=== PATIENT | female | born 1980 | race Asian ===

== ENCOUNTER 2022-07-10 20:30 | Inpatient (IN) | payer OTHER ==
[2022-07-10 21:33] LABS: BASO % 0.7 % (0-2.0); EOS % 0.3 % (0-4.5); HEMATOCRIT 39.1 % (32.4-45.2); MCH 28.7 pg (25.7-33.7); MCHC 33.2 g/dl (32.0-36.0); MEAN CELL VOLUME 86.5 fl (80-96); MEAN PLT VOLUME 7.5 fl (7.5-11.1); MONO % 7.1 % (3.8-10.2); NEUT % 82.9 % (42.8-82.8); PLATELET COUNT 287 10^3/uL (134-434); RBC 4.52 M/mm3 (3.60-5.2); RDW 14.1 % (11.6-15.6); WHITE BLOOD COUNT 10.8 K/mm3 (4.0-10.0)
[2022-07-10 21:50] LABS: ALBUMIN 3.7 g/dl (3.4-5.0); BLOOD UREA NITROGEN 8.7 mg/dL (7-18); CALCIUM 8.6 mg/dL (8.5-10.1); MAGNESIUM 2.2 mg/dL (1.8-2.4)
[2022-07-10 21:53] LABS: CREATININE 0.6 mg/dL (0.55-1.3); PHOSPHOROUS 1.8 mg/dL (2.5-4.9)
[2022-07-10 21:54] LABS: BILIRUBIN,TOTAL 0.3 mg/dL (0.2-1); TOT PROT 7.5 g/dl (6.4-8.2)
[2022-07-10] MEDS ORDERED: DIPHTH,PERTUSS(ACELL),TET 0.5 ML DISP.SYRIN IM ONE ×2 (21:55→22:27)
[2022-07-10] MEDS ORDERED: NAPH,MB-DB/K PH,MBDB POWDER PACKET PO ONE (22:00)
[2022-07-10] MEDS ORDERED: NAPH,MB-DB/K PH,MBDB POWDER PACKET ONE (22:26)
[2022-07-10] MEDS ORDERED: LACTATED RINGERS SOLUTION 1000 ML INFUS.BAG IV ONE (22:36)
[2022-07-11 00:04] LABS: COCAINE, UR NEGATIVE (NEGATIVE); OPIATES, URI NEGATIVE (NEGATIVE); PHENCYCLIDINE,URINE NEGATIVE (NEGATIVE); URINE BARBITURATES NEGATIVE (NEGATIVE)
[2022-07-11 00:05] LABS: METHADONE, UR NEGATIVE (NEGATIVE)
[2022-07-11 00:14] LABS: URINE AMPHETAMINES NEGATIVE (NEGATIVE); URINE BENZODIAZEPINES POSITIVE (NEGATIVE)
[2022-07-11] MEDS ORDERED: diazePAM 5 MG TABLET PO PRN (01:05)
[2022-07-11] MEDS: diazePAM 5 MG TABLET PO SCH ×4 (01:18→18:12)
[2022-07-11] MEDS: SODIUM CHLORIDE 1,000 ML IV SCH (02:58)
[2022-07-11 07:32] LABS: BASO % 0.7 % (0-2.0); EOS % 1.2 % (0-4.5); HEMATOCRIT 36.7 % (32.4-45.2); HEMOGLOBIN 11.9 GM/dL (10.7-15.3); LYMPH % 23.7 % (8-40); MCH 28.3 pg (25.7-33.7); MCHC 32.4 g/dl (32.0-36.0); MEAN CELL VOLUME 87.4 fl (80-96); MEAN PLT VOLUME 7.9 fl (7.5-11.1); MONO % 8.9 % (3.8-10.2); NEUT % 65.5 % (42.8-82.8); PLATELET COUNT 257 10^3/uL (134-434); RDW 14.3 % (11.6-15.6); WHITE BLOOD COUNT 10.6 K/mm3 (4.0-10.0)
[2022-07-11] MEDS ORDERED: diazePAM 5 MG TABLET ONE ×2 (08:03→14:13)
[2022-07-11 08:11] LABS: CALCIUM 8.2 mg/dL (8.5-10.1)
[2022-07-11 08:12] LABS: ALBUMIN 3.1 g/dl (3.4-5.0); BLOOD UREA NITROGEN 6.4 mg/dL (7-18); MAGNESIUM 2.2 mg/dL (1.8-2.4)
[2022-07-11 08:14] LABS: PHOSPHOROUS 3.2 mg/dL (2.5-4.9)
[2022-07-11 08:15] LABS: CREATININE 0.5 mg/dL (0.55-1.3)
[2022-07-11 08:16] LABS: BILIRUBIN,TOTAL 0.7 mg/dL (0.2-1); TOT PROT 6.1 g/dl (6.4-8.2)
[2022-07-11] MEDS ORDERED: IBUPROFEN 400 MG TABLET (FP) PO PRN (09:26)
[2022-07-11] MEDS ORDERED: FOLIC ACID 1 MG TABLET (FP) ONE (09:35)
[2022-07-11] MEDS ORDERED: THIAMINE HCL 100 MG TABLET (FP) ONE (09:35)
[2022-07-11] MEDS ORDERED: IBUPROFEN 400 MG TABLET (FP) PO ONE (09:36)
[2022-07-11] MEDS ORDERED: ENOXAPARIN NA (PORCINE) 40 MG/0.4 ML DISP.SYRIN SQ ONE (09:36)
[2022-07-11] MEDS: FOLIC ACID 1 MG TABLET (FP) PO SCH (09:45)
[2022-07-11] MEDS: ENOXAPARIN NA (PORCINE) 40 MG/0.4 ML DISP.SYRIN SQ SCH (09:45)
[2022-07-11] MEDS: THIAMINE HCL 100 MG TABLET (FP) PO SCH (09:46)
[2022-07-11] MEDS ORDERED: POTASSIUM CHLORIDE ORAL LIQUID 20 MEQ/15 ML PO ONE (14:15)
[2022-07-11] MEDS ORDERED: POTASSIUM CHLORIDE ORAL LIQUID 20 MEQ/15 ML ONE (14:18)
[2022-07-11 14:39] LABS: PH,URINE 6.5 (5.0-8.0); URINE APPEARANCE CLOUDY; URINE BILIRUBIN NEGATIVE (NEGATIVE); URINE COLOR YELLOW; URINE GLUCOSE (UA) NEGATIVE (NEGATIVE); URINE KETONE TRACE (NEGATIVE); URINE LEUK ESTERASE TRACE (NEGATIVE); URINE NITRITE NEGATIVE (NEGATIVE); URINE PROTEIN NEGATIVE (NEGATIVE); URINE UROBILINOGEN 0.2 mg/dL (0.2-1.0)
[2022-07-11 14:40] LABS: EPI CELLS 8.2 /uL (0-25.1); HYALINE CASTS 0.87 /uL (0-3.1); URINE BACTERIA 75.4 /uL (0-1359); URINE RBC 21.8 /uL (0-23.9); URINE WBC 38.6 /uL (0-25.8)
[2022-07-11] MEDS: NICOTINE 7 MG/24 HOURS TOPICAL PATCH TD SCH (14:48)
[2022-07-11 17:39] VITALS: BMI 27.3
[2022-07-12] MEDS: SODIUM CHLORIDE 1,000 ML IV SCH (03:00)
[2022-07-12] MEDS ORDERED: diazePAM 5 MG TABLET PO SCH (06:00)
[2022-07-12] MEDS: NICOTINE 7 MG/24 HOURS TOPICAL PATCH TD SCH (09:44)
[2022-07-12] MEDS: THIAMINE HCL 100 MG TABLET (FP) PO SCH (09:44)
[2022-07-12] MEDS: FOLIC ACID 1 MG TABLET (FP) PO SCH (09:44)
[2022-07-12] MEDS: ENOXAPARIN NA (PORCINE) 40 MG/0.4 ML DISP.SYRIN SQ SCH (09:47)
[2022-07-12 10:57] VITALS: BP 118/75; PULSE 74; RESP 20; TEMP 98.3
[2022-07-13] MEDS ORDERED: diazePAM 5 MG TABLET PO SCH (06:00)
[2022-07-14] MEDS ORDERED: diazePAM 5 MG TABLET PO ONE (06:00)
== END 2022-07-12 12:13 | disposition other institution (70) | DRG 53 ==
LOC: JER 20:30 → JERBED 22:53 → J4W 07-11 15:54
PROVIDERS: ADMIT Internal Medicine; ATTEND Internal Medicine
DX: G40.409 Other generalized epilepsy and epileptic syndromes, not intractable, without status epilepticus (principal); F13.239 Sedative, hypnotic or anxiolytic dependence with withdrawal, unspecified; F14.10 Cocaine abuse, uncomplicated; F17.210 Nicotine dependence, cigarettes, uncomplicated; L40.9 Psoriasis, unspecified; S01.01XA Laceration without foreign body of scalp, initial encounter; Z78.9 Other specified health status; W19.XXXA Unspecified fall, initial encounter; Y93.9 Activity, unspecified; Y92.89 Other specified places as the place of occurrence of the external cause; Y99.9 Unspecified external cause status
CPT/HCPCS: 0241U-QW; 36415; 70450-TC; 71045-TC-FY; 80053; 80307; 81003; 81025; 82308; 82550; 82553; 82962; 83735; 84100; 84484; 84703; 85025; 87086; 90715; 93005; 93010; 99285-25

== ENCOUNTER 2022-07-12 12:22 | Inpatient (IN) | payer OTHER ==
[2022-07-12 13:16] VITALS: BMI 26.4
[2022-07-12] MEDS ORDERED: NALOXONE HCL (KLOXXADO) 8 MG SPRAY NS PRN (14:17)
[2022-07-12] MEDS ORDERED: MAG HYDROX/AL HYDROX/SIMETH 30 ML UNIT-DOSE CUP PO PRN (14:17)
[2022-07-12] MEDS ORDERED: MAGNESIUM HYDROX 2400MG/30ML ORAL SUSPENSION 30 ML CUP PO PRN (14:17)
[2022-07-12] MEDS ORDERED: IBUPROFEN 400 MG TABLET (FP) PO PRN (14:17)
[2022-07-12] MEDS ORDERED: DICYCLOMINE HCL 10 MG CAPSULE PO PRN (14:17)
[2022-07-12] MEDS ORDERED: BENZOCAINE/MENTHOL (CHLORASEPTIC ) LOZENGE MM PRN (14:17)
[2022-07-12] MEDS ORDERED: BISMUTH SUBSALICYLATE 262 MG/15 ML BTL PO PRN (14:17)
[2022-07-12] MEDS ORDERED: POLYETHYLENE GLYCOL (HEALTHYLAX) 3350 17 GM PACKET PO PRN (14:17)
[2022-07-12] MEDS ORDERED: ACETAMINOPHEN 325 MG TABLET (FP) PO PRN ×2 (14:17)
[2022-07-12] MEDS ORDERED: LOPERAMIDE HCL 2 MG CAPSULE PO PRN (14:17)
[2022-07-12] MEDS ORDERED: diazePAM 5 MG TABLET PO PRN (14:17)
[2022-07-12] MEDS ORDERED: IBUPROFEN 600 MG TABLET (FP) PO PRN (14:17)
[2022-07-12] MEDS ORDERED: ONDANSETRON *ODT* 4 MG TABLET SL PRN (14:17)
[2022-07-12] MEDS ORDERED: POTASSIUM CHLORIDE ORAL LIQUID 20 MEQ/15 ML PO ONE (14:20)
[2022-07-12] MEDS ORDERED: diazePAM 5 MG TABLET PO SCH (15:48)
[2022-07-12] MEDS: PRENATAL VITAMINS W/ FOLIC ACID TABLET (FP) PO SCH (15:50)
[2022-07-12] MEDS: CALCIUM 250MG/VIT-D 125 UNITS 1 COMBO TABLET PO SCH (16:05)
[2022-07-12] MEDS: METHOCARBAMOL 500 MG TABLET PO PRN ×2 (17:41→22:44)
[2022-07-12] MEDS: hydrOXYzine PAMOATE 25 MG CAPSULE (FP) PO PRN (17:41)
[2022-07-12] MEDS: MELATONIN 5 MG TABLETS PO SCH (22:41)
[2022-07-12] MEDS: THIAMINE HCL 100 MG TABLET (FP) PO SCH (22:41)
[2022-07-12] MEDS: BACITRACIN 0.9 GM PACKET TP SCH (22:44)
[2022-07-13] MEDS: diazePAM 5 MG TABLET PO SCH ×2 (05:46→18:01)
[2022-07-13] MEDS: CALCIUM 250MG/VIT-D 125 UNITS 1 COMBO TABLET PO SCH (10:14)
[2022-07-13] MEDS: BACITRACIN 0.9 GM PACKET TP SCH ×2 (10:14→22:32)
[2022-07-13] MEDS: PRENATAL VITAMINS W/ FOLIC ACID TABLET (FP) PO SCH (10:14)
[2022-07-13] MEDS: NICOTINE 10 MG CARTRIDGE (INHALER) IH PRN (18:45)
[2022-07-13] MEDS: hydrOXYzine PAMOATE 25 MG CAPSULE (FP) PO PRN (22:32)
[2022-07-13] MEDS: MELATONIN 5 MG TABLETS PO SCH (22:32)
[2022-07-13] MEDS: METHOCARBAMOL 500 MG TABLET PO PRN (22:32)
[2022-07-13] MEDS: THIAMINE HCL 100 MG TABLET (FP) PO SCH (22:32)
[2022-07-14] MEDS ORDERED: diazePAM 5 MG TABLET PO SCH (06:00)
[2022-07-14] MEDS ORDERED: diazePAM 5 MG TABLET PO ONE (06:00)
[2022-07-14] MEDS: PRENATAL VITAMINS W/ FOLIC ACID TABLET (FP) PO SCH (10:20)
[2022-07-14] MEDS: BACITRACIN 0.9 GM PACKET TP SCH ×2 (10:21→22:14)
[2022-07-14] MEDS: CALCIUM 250MG/VIT-D 125 UNITS 1 COMBO TABLET PO SCH (10:21)
[2022-07-14] MEDS: METHOCARBAMOL 500 MG TABLET PO PRN ×2 (10:21→22:14)
[2022-07-14] MEDS: hydrOXYzine PAMOATE 25 MG CAPSULE (FP) PO PRN ×2 (10:21→22:15)
[2022-07-14] MEDS: NICOTINE 10 MG CARTRIDGE (INHALER) IH PRN ×3 (12:44→22:15)
[2022-07-14] MEDS: MELATONIN 5 MG TABLETS PO SCH (22:14)
[2022-07-14] MEDS: THIAMINE HCL 100 MG TABLET (FP) PO SCH (22:14)
[2022-07-15] MEDS ORDERED: diazePAM 5 MG TABLET PO SCH (06:00)
[2022-07-15 06:51] VITALS: BP 108/69; PULSE 65; RESP 16; TEMP 97.3
[2022-07-15] MEDS: CALCIUM 250MG/VIT-D 125 UNITS 1 COMBO TABLET PO SCH (10:25)
[2022-07-15] MEDS: BACITRACIN 0.9 GM PACKET TP SCH (10:25)
[2022-07-15] MEDS: PRENATAL VITAMINS W/ FOLIC ACID TABLET (FP) PO SCH (10:25)
[2022-07-16] MEDS ORDERED: diazePAM 5 MG TABLET PO ONE (06:00)
== END 2022-07-15 09:15 | disposition home or self-care (01) | DRG 774 ==
LOC: YASAS 12:22 → Y6N 15:28
PROVIDERS: ADMIT Allergy & Immunology; ATTEND Family Medicine
PROC: HZ2ZZZZ Detoxification Services for Substance Abuse Treatment (ICD-10-PCS; principal; 2022-07-12)
DX: F13.230 Sedative, hypnotic or anxiolytic dependence with withdrawal, uncomplicated (principal); F14.20 Cocaine dependence, uncomplicated; F17.210 Nicotine dependence, cigarettes, uncomplicated; E83.51 Hypocalcemia; G40.89 Other seizures
CPT/HCPCS: 36415; 84132; 86780; 87811; C9803-CS; U0003; U0005